=== PATIENT | female | born 1960 | race African-American/Black ===

== ENCOUNTER 2017-11-30 21:12 | Emergency (ER) | payer OTHER ==
--- NOTE | 2017-11-30 21:14 | PDOC ---
Rapid Medical Evaluation Chief Complaint: Palpitations Time Seen by Provider: 11/30/17 21:14 Medical Evaluation: Allergies Allergy/AdvReac Type Severity Reaction Status Date / Time anasthesia Allergy Uncoded 04/18/16 14:20 11/30/17 21:14 c/o left sided chest pain and "pins and needle" to chest. and feeling palpitation. reports feeling tired and heaviness to chest. Aspirin 81 mg x 1 today./ O: patient alert ox3, breath sound clear. s1 s2 regular rate/ A; chest pain P: EKG, cbc, cmp, cardiac, chest xray patient to the ER for further management,
[2017-11-30] MEDS ORDERED: ASPIRIN 81 MG CHEWABLE TABLETS PO ONE (21:17)
[2017-11-30 21:37] VITALS: BP 141/84; PULSE 64; TEMP 97.7; BMI 28.4
[2017-11-30] MEDS ORDERED: ASPIRIN 81 MG CHEWABLE TABLETS ONE (21:46)
[2017-11-30 21:50] LABS: EOS % 1.7 % (0-4.5); HEMATOCRIT 37.3 % (32.4-45.2); HEMOGLOBIN 12.8 GM/dL (10.7-15.3); LYMPH % 41.4 % (8-40); MCH 29.6 pg (25.7-33.7); MCHC 34.2 g/dl (32.0-36.0); MEAN CELL VOLUME 86.5 fl (80-96); MEAN PLT VOLUME 9.6 fl (7.5-11.1); MONO % 7.5 % (3.8-10.2); NEUT % 48.4 % (42.8-82.8); PLATELET COUNT 230 K/MM3 (134-434); RBC 4.32 M/mm3 (3.60-5.2); RDW 13.1 % (11.6-15.6); WHITE BLOOD COUNT 9.9 K/mm3 (4.0-10.0)
[2017-11-30 22:12] LABS: INR 1.04 (0.82-1.09); PROTHROMBIN TIME (PATIENT) 11.7 SEC (9.7-13.0)
[2017-11-30 22:21] LABS: ANION GAP 7 (8-16); BILIRUBIN,TOTAL 0.3 mg/dL (0.2-1.0); BLOOD UREA NITROGEN 13 mg/dL (7-18); CALCIUM 8.9 mg/dL (8.5-10.1); CHLORIDE 106 mmol/L (98-107); CO2 27 mmol/L (21-32); CREATININE 0.8 mg/dL (0.55-1.02); GLUCOSE,RANDOM 104 mg/dL (74-106); MAGNESIUM 2.1 mg/dL (1.8-2.4); POTASSIUM 4.1 mmol/L (3.5-5.1); SGOT/AST 16 U/L (15-37); SGPT/ALT 19 U/L (12-78); SODIUM 140 mmol/L (136-145); TOT PROT 7.9 g/dl (6.4-8.2)
[2017-11-30 22:23] LABS: ALK PHOS 55 U/L (45-117)
--- NOTE | 2017-11-30 23:26 | PDOC ---
History of Present Illness - General Chief Complaint: Chest Pain Stated Complaint: PALPITATIONS Time Seen by Provider: 11/30/17 21:14 History Source: Patient - History of Present Illness Initial Comments: 11/30/17 23:41 57 year old female with left sided chest pain, midsternal heaviness and burning in chest. patient reports that she took one baby aspirin today with no relief in pain. denies pmhx no current meds PMD: Dr. page Presenting Symptoms: Chest Pain Severity/Quality: reports: moderate, pressure Location: reports: central, epigastric Activities at Onset: reports: none Aspirin Received prior to arrival (Core Measure): Yes: 81 mg x 1 Past History - Past Medical History Allergies/Adverse Reactions: Allergies Allergy/AdvReac Type Severity Reaction Status Date / Time anasthesia Allergy Uncoded 11/30/17 22:55 Home Medications: Ambulatory Orders NK [No Known Home Medication] 12/01/17 - Suicide/Smoking/Psychosocial Hx Smoking History: Never smoked Have you smoked in the past 12 months: No Information on smoking cessation initiated: No Hx Alcohol Use: No Drug/Substance Use Hx: No Substance Use Type: None Review of Systems - Review of Systems Able to Perform ROS?: Yes Is the patient limited Telugu proficient: No Constitutional: No: Symptoms Reported, See HPI, Chills, Diaphoresis, Fever, Loss of Appetite, Malaise, Night Sweats, Weakness, Weight Stable, Unintentional Wgt. Loss, Unexplained wgt Loss, Other HEENTM: No: Symptoms Reported, See HPI, Eye Pain, Blurred Vision, Tearing, Recent change in vision, Double Vision, Cataracts, Ear Pain, Ocular Prothesis, Ear Discharge, Nose Pain, Nose Congestion, Tinnitus, Nose Bleeding, Hearing Loss , Throat Pain, Throat Swelling, Mouth Pain, Dental Problems, Difficulty Swallowing, Mouth Swelling, Other Cardiac (ROS): Yes: Chest Pain, Palpitations *Physical Exam - Vital Signs Last Vital Signs Temp Pulse Resp BP Pulse Ox 97.7 F 64 18 141/84 98 11/30/17 21:16 11/30/17 21:16 11/30/17 21:16 11/30/17 21:16 11/30/17 21:16 - Physical Exam General Appearance: Yes: Appropriately Dressed Respiratory/Chest: positive: Lungs Clear, Normal Breath Sounds Cardiovascular: positive: Regular Rhythm, Regular Rate Gastrointestinal/Abdominal: positive: Normal Bowel Sounds, Soft. negative: Tender Extremity: positive: Normal Capillary Refill, Normal Inspection Integumentary: positive: Normal Color, Dry, Warm Neurologic: positive: Fully Oriented, Alert Heart Score/ECG Review - History History: Slightly suspicious - Electrocardiogram EKG: Non specific repolarization disturbance - Age Age: 45-65 - Risk Factors Risk Factors Heart Score: Yes Hx Diabetes Based on the list above the patient has:: 1-2 risk factors - Troponin Troponin: </= normal limit - Score Heart Score - Total: 3 - ECG Intrepretation Rhythm: Regular Rhythm Comment:: 12/01/17 00:00 normal sinus rhythm : 62 bpm incomplete right bundle brach block, nonspecific T wave abnormality. ED Treatment Course - LABORATORY CBC & Chemistry Diagram: 11/30/17 21:42 11/30/17 21:42 - ADDITIONAL ORDERS Additional order review: 11/30/17 21:42 RBC 4.32 MCV 86.5 MCHC 34.2 RDW 13.1 MPV 9.6 Neutrophils % 48.4 Lymphocytes % 41.4 H Monocytes % 7.5 Eosinophils % 1.7 Basophils % 1.0 D - RADIOLOGY Radiology Studies Ordered: Category Date Time Status CHEST PA & LAT [RAD] Stat Radiology 11/30/17 21:17 Completed - Medications Given in the ED: ED Medications Discontinued Medications Generic Name Dose Route Start Last Admin Trade Name Freq PRN Reason Stop Dose Admin Aspirin 162 mg 11/30/17 21:17 11/30/17 21:49 Asa - PO 11/30/17 21:18 162 mg ONCE ONE Administration Progress Note - Progress Note Progress Note: A: chest pain P: cbc cardiac enzymes chemistry *DC/Admit/Observation/Transfer Diagnosis at time of Disposition: Atypical chest pain - Discharge Dispostion Disposition: HOME - Referrals Referrals: Juan Alonzo MD [Staff Physician] - David Alaniz MD [Primary Care Provider] - Call tomorrow - Patient Instructions Printed Discharge Instructions: DI for Atypical Chest Pain Additional Instructions: follow up with your doctor as soon as possible. return to the ER if symptoms worsen. - Post Discharge Activity
--- NOTE | 2017-11-30 23:48 | PDOC ---
*Physical Exam - Vital Signs Last Vital Signs Temp Pulse Resp BP Pulse Ox 97.7 F 64 18 141/84 98 11/30/17 21:16 11/30/17 21:16 11/30/17 21:16 11/30/17 21:16 11/30/17 21:16 ED Treatment Course - LABORATORY CBC & Chemistry Diagram: 11/30/17 21:42 11/30/17 21:42 - ADDITIONAL ORDERS Additional order review: Laboratory Results 11/30/17 11/30/17 21:42 21:42 PT with INR 11.70 INR 1.04 Sodium 140 Potassium 4.1 Chloride 106 Carbon Dioxide 27 Anion Gap 7 L BUN 13 Creatinine 0.8 Creat Clearance w eGFR > 60 Random Glucose 104 Calcium 8.9 Magnesium 2.1 Total Bilirubin 0.3 D AST 16 ALT 19 Alkaline Phosphatase 55 Creatine Kinase 110 Troponin I < 0.02 Total Protein 7.9 Albumin 4.0 11/30/17 21:42 RBC 4.32 MCV 86.5 MCHC 34.2 RDW 13.1 MPV 9.6 Neutrophils % 48.4 Lymphocytes % 41.4 H Monocytes % 7.5 Eosinophils % 1.7 Basophils % 1.0 D Medical Decision Making - Medical Decision Making 11/30/17 23:48 agree with care from MIGUEL Graff *DC/Admit/Observation/Transfer Diagnosis at time of Disposition: Atypical chest pain - Discharge Dispostion Disposition: HOME - Referrals Referrals: Juan Alonzo MD [Staff Physician] - David Alaniz MD [Primary Care Provider] - Call tomorrow - Patient Instructions Printed Discharge Instructions: DI for Atypical Chest Pain Additional Instructions: follow up with your doctor as soon as possible. return to the ER if symptoms worsen. - Post Discharge Activity
--- NOTE | 2017-12-01 11:28 | EKG ---
Test Reason : Blood Pressure : / mmHG Vent. Rate : 062 BPM Atrial Rate : 062 BPM P-R Int : 176 ms QRS Dur : 092 ms QT Int : 404 ms P-R-T Axes : -01 001 -07 degrees QTc Int : 410 ms NORMAL SINUS RHYTHM INCOMPLETE RIGHT BUNDLE BRANCH BLOCK NONSPECIFIC T WAVE ABNORMALITY ABNORMAL ECG WHEN COMPARED WITH ECG OF 08-NOV-2015 21:12, NO SIGNIFICANT CHANGE WAS FOUND Confirmed by IZABELLA JEAN, STEFANIE ([id number]) on 12/01/2017 11:28:05 AM Referred By: Confirmed By:STEFANIE PAREKH MD
== END 2017-12-01 06:53 | disposition home or self-care (01) ==
LOC: JER 21:12
DX: R07.89 Other chest pain (principal); E11.9 Type 2 diabetes mellitus without complications
CPT/HCPCS: 36415; 71046-TC-FY; 80053; 82550; 83735; 84484; 85025; 85610; 93005; 93010; 99283-25